=== PATIENT | male | born 1960 | race Caucasian/White ===

== ENCOUNTER → 2021-08-14 | Outpatient (CLI) | payer OTHER ==
--- NOTE | 2021-08-15 14:49 | XR ---
EXAMINATION TYPE: XR knee complete LT DATE OF EXAM: 08/15/2021 CLINICAL HISTORY: pain TECHNIQUE: Three views of the left knee are obtained. COMPARISON: None. FINDINGS: There is no acute fracture/dislocation. The tri-compartment joint spaces appear mildly na rrowed. Spur formation superior patellar pole and the margins of the medial tibial plateau and femora l condyle. The overlying soft tissue appears unremarkable. IMPRESSION: There is no acute fracture or dislocation ICD 10 NO FRACTURE, INITIAL EVALUATION
== END | disposition home or self-care (01) ==
LOC: RADXRMAIN 15:16
PROVIDERS: ATTEND Emergency Medicine
DX: S83.92XA Sprain of unspecified site of left knee, initial encounter (principal); X58.XXXA Exposure to other specified factors, initial encounter

== ENCOUNTER 2021-10-24 08:16 | Day surgery (SDC) | payer OTHER ==
[2021-10-23 08:42] VITALS: BMI 33.2
--- NOTE | 2021-10-23 09:51 | HP ---
HISTORY AND PHYSICAL CHIEF COMPLAINT: Left knee pain. HISTORY OF PRESENT ILLNESS: The patient is a 61-year-old male who presents with left knee pain after an injury at work on 08/13/2021. He twisted his knee when a doorwall fell. He has had pain and swelling ever since. He notes locking and giving way. He notes daily pain with any weight-bearing activities. He has tried therapy and medications, without much relief. He denies previous problems. He has also been wearing a brace. PAST MEDICAL HISTORY: Negative. PAST SURGICAL HISTORY: Negative. CURRENT MEDICATIONS: Ibuprofen. ALLERGIES: HE DENIES DRUG ALLERGIES. FAMILY HISTORY: Negative. SOCIAL HISTORY: Significant for gox-kcjs-tki-day tobacco use. REVIEW OF SYSTEMS: Sixteen-point review of systems otherwise reviewed and is noncontributory. PHYSICAL EXAMINATION: On examination, the patient is approximately 6 feet tall, 240 pounds of mesomorphic habitus. HEENT exam is nonfocal. Neck is supple. He has painless passive motion of his left hip. Straight-leg raise is negative. Active motion of left knee: Minus 8 to 125 degrees of flexion. He has a moderate effusion. He is tender about the medial joint line. Collaterals are stable. Antonio is negative. Cally's elicits medial pain. He does have an antalgic gait pattern. His distal neurovascular exam appears intact in the left lower extremity. MRI report left knee shows evidence of a complex tear along the posterior horn of the medial meniscus along with a discoid lateral meniscus. IMPRESSION: Left knee symptomatic medial meniscal tear. RECOMMENDATIONS: I talked to the patient at length regarding his condition along with treatment options. At this point he is quite limited because of pain related to his left knee after this acute injury. After thorough discussion, he opts to proceed with surgery. We will plan to proceed with arthroscopic evaluation with probable partial medial meniscectomy. Risks and benefits were discussed at length in layman's terms. MMODL / IJN: [id number] /
[~2021-10-24 08:16] MED LIST: HYDROmorphone 0.5 MG/0.5 ML SYRINGE IVP PRN; LACTATED RINGERS 1,000 ML IV SCH; LIDOCAINE 1% (10MG/ML) FOR IV START INTRADERMA PRN; ONDANSETRON 4 MG/2 ML VIAL IVP PRN
[2021-10-24] MEDS ORDERED: LIDOCAINE 2% INJ 20 MG/ML (2 ML VIAL) ONE (09:26)
[2021-10-24] MEDS ORDERED: SUCCINYLCHOLINE CHLORIDE VIAL 200 MG/10 ML VIAL IV ONE (09:26)
[2021-10-24] MEDS ORDERED: MIDAZOLAM 2 MG/2 ML VIAL ONE (09:26)
[2021-10-24] MEDS ORDERED: PROPOFOL 10 MG/ML 20 ML VIAL IV ONE (09:26)
[2021-10-24] MEDS ORDERED: fentaNYL (PF) 50 MCG/ML 2 ML AMP ONE (09:26)
[2021-10-24] MEDS ORDERED: KETOROLAC 15 MG/ML 1 ML VIAL ONE (09:26)
[2021-10-24] MEDS ORDERED: EPINEPHrine (PF) 1 ML in SODIUM CHLORIDE 0.9% IRRIGATIO 3,000 ML IRRIGATION ONE ×4 (09:31)
--- NOTE | 2021-10-24 10:17 | P.OP ---
Date of Procedure: 10/24/21 Preoperative Diagnosis: Left knee internal derangement Postoperative Diagnosis: Left knee posterior medial meniscal tear Procedure(s) Performed: Left knee arthroscopic partial medial meniscectomy [facility] Surgeon: Kamran Gaviria Estimated Blood Loss (ml): 10 Pathology: none sent Condition: stable Disposition: PACU Indications for Procedure: The patient's a 61-year-old male presents with progressive left knee pain and mechanical symptoms despite previous conservative measures. A discussion of the risks and benefits of operative intervention versus continued conservative measures made with patient. He opted to proceed with surgery. Operative risks to include infection, neurovascular injury, development of blood clots, possible incomplete resolution of symptoms, possible worsening symptoms and need for subsequent procedures was discussed. Informed consent was obtained. Operative Findings: As below Description of Procedure: The patient was brought to the operating room, and after induction of general anesthesia examined the left knee. Collaterals were stable, Antonio was negative, and posterior drawer was negative. The left lower extremity was prepped and draped in a normal fashion. A superior lateral portal was made through a 3 mm skin incision superior and lateral to the patella. This was used for outflow. A lateral portal was made through a 5 mm vertical skin incision lateral to the patella tendon above the joint line. Diagnostic arthroscopy was performed. On inspection of the medial compartment, a complex tear involving the posterior horn medial meniscus in the white-white junction was noted. This was debrided back to stable base with straight basket and a motorized shaver. The remaining medial meniscus was stable and intact. A corresponding grade 2-3 chondral changes were noted diffusely involving the medial compartment. On inspection of the notch, the anterior cruciate ligament appeared to be intact. On inspection of the lateral compartment, a discoid lateral meniscus was noted. No significant tearing was noted.. On inspection of the patellofemoral articulation, there was chondral fibrillation however no loose chondral fragments. The gutters were clear debris. The knee was then thoroughly irrigated. The portals were closed with Steri-Strips. A sterile dressing was applied in addition to a compression stocking. The patient was awoken from [facility] anesthesia and transferred to recovery room in good condition. Blood loss was estimated at 10 mL. No complications were incurred.
[2021-10-24 10:38] VITALS: TEMP 96.8
[2021-10-24] MEDS ORDERED: LACTATED RINGERS 1,000 ML IV ONE (11:20)
[2021-10-24] MEDS ORDERED: Acetaminophen-Codeine 300-30mg TAB ONE (11:51)
[2021-10-24] MEDS ORDERED: Acetaminophen-Codeine 300-30mg TAB PO ONE (11:54)
[2021-10-24 12:25] VITALS: BP 123/73; PULSE 56; RESP 17
== END 2021-10-24 11:51 | disposition home or self-care (01) ==
LOC: OR 08:16
PROVIDERS: ATTEND Orthopaedic Surgery
DX: S83.242A Other tear of medial meniscus, current injury, left knee, initial encounter (principal); X50.1XXA Overexertion from prolonged static or awkward postures, initial encounter; Z98.41 Cataract extraction status, right eye; Z79.84 Long term (current) use of oral hypoglycemic drugs; Z79.899 Other long term (current) drug therapy; Z79.1 Long term (current) use of non-steroidal anti-inflammatories (NSAID); F17.210 Nicotine dependence, cigarettes, uncomplicated; Z97.2 Presence of dental prosthetic device (complete) (partial); Z88.8 Allergy status to other drugs, medicaments and biological substances
CPT/HCPCS: 29881; J2250; J0330; J0690; J2405; J0171; J3010; J1885; J2704; J2001

== ENCOUNTER → 2022-06-22 | Outpatient (CLI) | payer OTHER ==
--- NOTE | 2022-06-22 11:29 | US ---
EXAMINATION TYPE: US scrotum with doppler. Grayscale and color Doppler Duplex imaging performed of paul morocho scrotum. DATE OF EXAM: 06/22/2022 COMPARISON: 05/03/2019 CLINICAL HISTORY: N43.3 right hydrocele R10.32 LLQ abdominal pain. EXAM MEASUREMENTS: TESTICLES: Right Testicle: 5.1 x 2.9 x 3.8 cm Left Testicle: 5.3 x 3.0 x 3.5 cm EPIDIDYMIS HEAD: Right Epididymis: 1.0 cm Left Epididymis: 0.7 cm Doppler performed to assess for testicular vascularity; good bilateral color flow and waveforms are s een. There is no evidence of testicular torsion. Right hydrocele measuring 10.9 x 5.5 x 8.6 cm , small left hydrocele present. Presence of varicoceles: no IMPRESSION: 1. Appropriate arterial and spectral venous waveforms to the testes. 2. Moderate to large right hydrocele and small left hydrocele. Findings are comparable to 2018 exam.
== END | disposition home or self-care (01) ==
LOC: RADUSWWP 10:23
PROVIDERS: ATTEND Internal Medicine
DX: N43.3 Hydrocele, unspecified (principal)
CPT/HCPCS: 76870; 93975

== ENCOUNTER → 2024-09-11 | Outpatient (CLI) | payer MEDICARE ==
--- NOTE | 2024-09-11 10:53 | US ---
EXAMINATION TYPE: US scrotum with doppler. DATE OF EXAM: 09/11/2024 COMPARISON: US June 22, 2022 CLINICAL INDICATION: Male, 64 years old with history of N43.3 HYDROCELE, UNSPECIFIED; Known right hyd rocele, pt states right scrotal pain TECHNIQUE: Grayscale, color Doppler and spectral Doppler imaging of the scrotum. FINDINGS: EXAM MEASUREMENTS: TESTICLES: Right Testicle: 4.7 x 3.2 x 4.4 cm Left Testicle: 5.5 x 2.4 x 3.6 cm EPIDIDYMIS HEAD: Right Epididymis: Unable to visualize due to hydrocele Left Epididymis: 1.2 cm Doppler performed to assess for testicular vascularity; good bilateral color flow and spectral wavefo amberly are seen. Presence of hydroceles: Hydrocele right scrotum= 8.1 x 4.0 x 9.7 cm- appears similar to prior US Presence of varicoceles: No IMPRESSION: Persistent moderate to large sized right-sided scrotal fluid collection or hydrocele. Sat isfactory blood flow to right testicle is redemonstrated. [facility], , 09/11/2024 10:50 AM
== END | disposition home or self-care (01) ==
LOC: RADUSWWP 10:01
PROVIDERS: ATTEND Internal Medicine
DX: N43.3 Hydrocele, unspecified (principal); N50.82 Scrotal pain
CPT/HCPCS: 76870; 93975